=== PATIENT | female | born 2000 | race African-American/Black ===

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

== ENCOUNTER → 2019-08-04 | Outpatient (CLI) | payer OTHER ==
[~2019-08-04] MED LIST: TRAM50TA PO
[2019-08-04 17:42] LABS: BASO # 0.1 x10^3/uL (0.0-0.2); BASO % 1 % (0-3); EOS # 0.1 x10^3/uL (0.0-0.7); EOS % 1 % (0-3); HEMATOCRIT 37.9 % (36.0-47.0); HEMOGLOBIN 12.7 g/dL (12.0-15.5); LYMPH # 2.5 x10^3/uL (1.0-4.8); LYMPH % 24 % (24-48); MEAN CORPUSCULAR HEMOGLOBIN 27 pg (25-35); MEAN CORPUSCULAR HGB CONC 34 g/dL (31-37); MEAN CORPUSCULAR VOLUME 82 fL (79-100); MONO # 0.9 x10^3/uL (0.0-1.1); MONO % 9 % (0-9); NEUT % 67 % (31-73); PLATELET COUNT 344 x10^3/uL (140-400); RED BLOOD COUNT 4.64 x10^6/uL (3.50-5.40); RED CELL DISTRIBUTION WIDTH 15.4 % (11.5-14.5); WHITE BLOOD COUNT 10.5 x10^3/uL (4.0-11.0)
== END ==
LOC: LAB 17:22
PROVIDERS: ATTEND Obstetrics & Gynecology
DX: Z32.01 Encounter for pregnancy test, result positive (principal)
CPT/HCPCS: 36415; 84144; 84702; 85025; 85660; 86592; 86703; 86762; 86850; 86900; 86901; 87340

== ENCOUNTER → 2019-11-22 | Outpatient (CLI) | payer OTHER ==
--- NOTE | 2019-11-22 17:33 | RAD ---
EXAM: Obstetrics sonogram. HISTORY: Size and dates discrepancy. TECHNIQUE: Sonographic imaging of a gravid uterus was performed. COMPARISON: 07/30/2019. FINDINGS: There is a single intrauterine fetus in breech presentation with a normal heart rate of 137 bpm. There is a posterior grade 1 placenta without evidence of placenta previa. The cervix is closed and measures 4.2 cm in length. The amniotic fluid volume is normal. There is a three-vessel umbilical cord. The heart, brain, spine, kidneys, stomach, bladder, facial profile and extremities are unremarkable. The biparietal diameter is 5.12 cm, corresponding with 21 weeks and 4 days. The head circumference is 19.11 cm, corresponding with 21 weeks and 3 days. The abdominal circumference is 16.63 cm, corresponding with 21 weeks and 5 days. The femoral length is 3.62 cm, corresponding with 21 weeks and 3 days. The estimated gestational age based on combined ultrasound measurements is 21 weeks and 4 days and the estimated weight is 433 g. This corresponds with the 14th percentile for a gestational age of 23 weeks and 5 days based on LMP. IMPRESSION: 1. Single intrauterine fetus in breech presentation with normal heart rate and gestational age based on ultrasound measurements of 21 weeks and 4 days. The estimated weight is at the 40th percentile for a gestational age of 23 weeks and 5 days based on LMP. 2. Unremarkable anatomy survey. Electronically signed by: Umu Finnegan MD (11/22/2019 5:30 PM) [id number]
== END | disposition home or self-care (01) ==
LOC: US 14:42
PROVIDERS: ATTEND Obstetrics & Gynecology
DX: O26.842 Uterine size-date discrepancy, second trimester (principal); Z3A.23 23 weeks gestation of pregnancy
CPT/HCPCS: 76805

== ENCOUNTER 2020-04-03 19:49 | Inpatient (IN) | payer OTHER ==
[~2020-04-03] VITALS: Ht 172.7 cm; Wt 164.8 kg
[2020-04-03] MEDS: IV RINGERS,LACTATED 1000ML 1,000 ML IV SCH (21:26)
[2020-04-03 21:29] VITALS: BP 142/74
[2020-04-03] MEDS ORDERED: 0.9 % SODIUM CHLORIDE 10 ML DISP.SYRIN. IV PRN (21:30)
[2020-04-03] MEDS ORDERED: OXYTOCIN 30 UNIT/500 ML PREMIX 500 ML IV PRN ×2 (21:30)
[2020-04-03] MEDS ORDERED: ONDANSETRON PF 4 MG/2 ML VIAL. IVP PRN (21:30)
[2020-04-03] MEDS ORDERED: LIDOCAINE 1% PF 30 ML VIAL. INJ PRN (21:30)
[2020-04-03] MEDS ORDERED: fentaNYL PF VIAL 100 MCG/2 ML VIAL IVP PRN ×2 (21:30)
[2020-04-03] MEDS ORDERED: ACETAMINOPHEN 325 MG TABLET. PO PRN (21:30)
[2020-04-03] MEDS ORDERED: PENICILLIN G K 5,000,000 UNIT in IV DEXTROSE 5% 100ML 100 ML IV ONE (21:30)
[2020-04-03] MEDS ORDERED: MAG HYDROX/ALUMINUM HYD/SIMETH 30 ML ORAL.SUSP PO PRN (21:30)
[2020-04-03] MEDS ORDERED: DOCUSATE SODIUM 283 MG/5 ML ENEMA. PR PRN (21:30)
[2020-04-03] MEDS ORDERED: TERBUTALINE 1 MG/ML VIAL. SQ PRN (21:30)
[2020-04-03] MEDS ORDERED: DINOPROSTONE 10 MG SUPP.VAG VG ONE (21:30)
[2020-04-03 21:50] LABS: BASO # 0.1 x10^3/uL (0.0-0.2); BASO % 1 % (0-3); EOS % 1 % (0-3); HEMATOCRIT 35.5 % (36.0-47.0); HEMOGLOBIN 11.7 g/dL (12.0-15.5); LYMPH # 2.2 x10^3/uL (1.0-4.8); LYMPH % 24 % (24-48); MEAN CORPUSCULAR HEMOGLOBIN 27 pg (25-35); MEAN CORPUSCULAR HGB CONC 33 g/dL (31-37); MEAN CORPUSCULAR VOLUME 82 fL (79-100); MONO # 0.9 x10^3/uL (0.0-1.1); MONO % 10 % (0-9); NEUT # 5.9 x10^3/uL (1.8-7.7); NEUT % 64 % (31-73); PLATELET COUNT 330 x10^3/uL (140-400); RED BLOOD COUNT 4.31 x10^6/uL (3.50-5.40); RED CELL DISTRIBUTION WIDTH 15.4 % (11.5-14.5); WHITE BLOOD COUNT 9.2 x10^3/uL (4.0-11.0)
[2020-04-04] MEDS: IV RINGERS,LACTATED 1000ML 1,000 ML IV SCH ×2 (06:55→17:15)
[2020-04-04 07:17] LABS: BILIRUBIN,URINE NEGATIVE (NEG); CLARITY,URINE CLEAR; COLOR,URINE YELLOW; NITRITE,URINE NEGATIVE (NEG); PROTEIN,URINE NEGATIVE (NEG-TRACE); UROBILINOGEN,URINE 0.2 mg/dL (0.2 mg/dL)
[2020-04-04 07:39] LABS: BACTERIA,URINE FEW /HPF (0-FEW); RBC,URINE 0 /HPF (0-2)
--- NOTE | 2020-04-04 08:10 | PDOC1 ---
OB - History Hx of Present Care: Good Care Ultrasounds: Normal mid trimester US Obstetrical Complications: Other (Oligohydramnios) Medical Complications: None Past Family/Social History * Past Medical, Surgical, Family and Obstetric Histories reviewed from chart. Rubella: Immune RPR/VDRL: Negative GBS Status: Positive HBsAG: Negative OB - Chief Complaint & HPI Date of Admission: Date of Admission: Apr 03, 2020 at 19:49 Chief Complaint/History : 1 Para: 0 EGA: 40 Reason for admission: induction of labor (oligohydramnios) Admission Nurse Assessment Rev: Yes OB - Admission Exam Physical Exam Vitals: VS - Last 72 Hours, by Label Date Time Temp Pulse Resp B/P (MAP) Pulse Ox O2 Delivery O2 Flow Rate FiO2 04/03/20 21:29 98.2 103 18 142/74 (96) Room Air 98.2 HEENT: Normal Heart: Regular Rate Lungs: Clear Abdomen: Gravid, Non tender, Soft Extremities: Edema Reflexes: Normal Cervical Dilatation: Fingertip Effacement: 50% Station: -3 Membranes: Intact Accelerations: Accelerations Present Decelerations: No decelerations Contractions on Admission: None Text A: 40 wks IUP Oligohydramnios GBS positive P: Admit IOL cervidil, then pitocin in am with Pen G prophylaxis for GBS status. CHARISSA DEL TORO Jr, MD Apr 04, 2020 08:10
[2020-04-04] MEDS: PENICILLIN G K 2,500,000 UNIT in IV DEXTROSE 5% 50 ML IV SCH (11:37)
[2020-04-04] MEDS ORDERED: DINOPROSTONE 10 MG SUPP.VAG VG ONE ×2 (17:00→22:30)
[2020-04-05] MEDS ORDERED: diphenhydrAMINE HCL 25 MG CAPSULE PO PRN ×2 (01:15→14:00)
[2020-04-05] MEDS: PENICILLIN G K 2,500,000 UNIT in IV DEXTROSE 5% 50 ML IV SCH ×2 (05:52→10:46)
[2020-04-05] MEDS ORDERED: OXYTOCIN 30 UNIT/500 ML PREMIX 500 ML IV ONE (06:00)
[2020-04-05] MEDS ORDERED: ROPIVacaine 0.2% PF 10 ML VIAL. ONE ×2 (09:06→10:00)
[2020-04-05] MEDS ORDERED: L&D EPIDURAL SYRINGE 50 ML ONE ×2 (09:07→12:31)
[2020-04-05] MEDS ORDERED: L&D EPIDURAL 50 ML SYRINGE. ONE (10:00)
[2020-04-05] MEDS: IV RINGERS,LACTATED 1000ML 1,000 ML IV SCH (10:04)
--- NOTE | 2020-04-05 13:51 | PDOC ---
VAGINAL DELIVERY DATE DATE: 04/05/20 TIME: 13:50 : 1 Para: 1 EGA: 40 VAGINAL DELIVERY: VTX VACCUM ASSISTED: No PLACENTA: Spontaneous 8/9 SEX: Female WEIGHT Weight [ 6 lbs. 8 oz ] Nuchal Cord: No Amniotic Fluid: Clear PAIN: Epidural EPISIOTOMY: No EXTENSION: Yes (2nd degree midline laceration and periurethral laceration) REPAIRED WITH 2-0 vicryl and 3-0 chromic EBL 300 ml COMPLICATIONS none CONDITION pt. stable Signs of Intrauterine Infectio: None Shoulder Dystocia: No CHARISSA DEL TORO Jr, MD Apr 05, 2020 13:51
[2020-04-05] MEDS ORDERED: HYDROCORTISONE 1% TOPICAL OINTMENT 30GM TUBE. TP PRN (14:00)
[2020-04-05] MEDS ORDERED: ZOLPIDEM 5 MG TABLET. PO PRN (14:00)
[2020-04-05] MEDS ORDERED: SIMETHICONE 80 MG TAB.CHEW PO PRN (14:00)
[2020-04-05] MEDS ORDERED: ACETAMINOPHEN 325 MG TABLET. PO PRN (14:00)
[2020-04-05] MEDS ORDERED: MAGNESIUM HYDROXIDE 2,400 MG/30 ML ORAL.SUSP. PO PRN (14:00)
[2020-04-05] MEDS ORDERED: IBUPROFEN 400 MG TABLET. PO PRN (14:00)
[2020-04-05] MEDS ORDERED: PHENYLEPH/MINERAL OIL/PETROLAT RECTAL OINTMENT TUBE. RC PRN (14:00)
[2020-04-05] MEDS ORDERED: OXYTOCIN 30 UNIT/500 ML PREMIX 500 ML IV PRN (14:00)
[2020-04-05] MEDS ORDERED: BENZOCAINE 20% TOPICAL AEROSOL SPRAY 57GM CAN. TP PRN (14:00)
[2020-04-05] MEDS ORDERED: oxyCODONE/APAP 5/325 1 TAB TABLET PO PRN (14:00)
[2020-04-05] MEDS ORDERED: 0.9 % SODIUM CHLORIDE 10 ML DISP.SYRIN. IV PRN (14:00)
[2020-04-05] MEDS ORDERED: MMR per PROTOCOL. MC PRN (14:00)
[2020-04-05] MEDS ORDERED: MAG HYDROX/ALUMINUM HYD/SIMETH 30 ML ORAL.SUSP PO PRN (14:00)
[2020-04-05] MEDS ORDERED: TDaP (Adacel) per PROTOCOL. MC PRN (14:00)
[2020-04-05] MEDS: IBUPROFEN 400 MG TABLET. PO PRN ×2 (15:50→20:20)
[2020-04-05 17:00] VITALS: BP 123/75
[2020-04-05 17:45] VITALS: BP 104/55
[2020-04-05 20:20] VITALS: BP 111/49
[2020-04-06] VITALS (7 sets, daily range): BP systolic 105–115; BP diastolic 58–74
[2020-04-06 07:24] LABS: BASO # 0.1 x10^3/uL (0.0-0.2); BASO % 1 % (0-3); EOS % 0 % (0-3); HEMATOCRIT 29.9 % (36.0-47.0); HEMOGLOBIN 9.5 g/dL (12.0-15.5); LYMPH # 3.4 x10^3/uL (1.0-4.8); LYMPH % 27 % (24-48); MEAN CORPUSCULAR HEMOGLOBIN 26 pg (25-35); MEAN CORPUSCULAR HGB CONC 32 g/dL (31-37); MEAN CORPUSCULAR VOLUME 82 fL (79-100); MONO # 1.2 x10^3/uL (0.0-1.1); MONO % 10 % (0-9); NEUT # 8.1 x10^3/uL (1.8-7.7); NEUT % 63 % (31-73); PLATELET COUNT 252 x10^3/uL (140-400); RED BLOOD COUNT 3.63 x10^6/uL (3.50-5.40); RED CELL DISTRIBUTION WIDTH 15.3 % (11.5-14.5); WHITE BLOOD COUNT 12.9 x10^3/uL (4.0-11.0)
[2020-04-06] MEDS ORDERED: MULTIVITAMIN with MINERAL TABLET. PO SCH (09:00)
[2020-04-06] MEDS: DOCUSATE SODIUM 100 MG CAPSULE. PO PRN ×2 (09:14→17:46)
[2020-04-06] MEDS: FERROUS SULFATE 325 MG TABLET. PO SCH ×2 (09:14→17:48)
--- NOTE | 2020-04-06 10:57 | PDOC ---
OB Progress Note Date of Service 04/06/20 Time of Evaluation 1055 Notes Pt. feeling well. No complaints. Lab Laboratory Tests Test 04/06/20 07:13 White Blood Count 12.9 x10^3/uL (4.0-11.0) Red Blood Count 3.63 x10^6/uL (3.50-5.40) Hemoglobin 9.5 g/dL (12.0-15.5) Hematocrit 29.9 % (36.0-47.0) Mean Corpuscular Volume 82 fL (79-100) Mean Corpuscular Hemoglobin 26 pg (25-35) Mean Corpuscular Hemoglobin Concent 32 g/dL (31-37) Red Cell Distribution Width 15.3 % (11.5-14.5) Platelet Count 252 x10^3/uL (140-400) Neutrophils (%) (Auto) 63 % (31-73) Lymphocytes (%) (Auto) 27 % (24-48) Monocytes (%) (Auto) 10 % (0-9) Eosinophils (%) (Auto) 0 % (0-3) Basophils (%) (Auto) 1 % (0-3) Neutrophils # (Auto) 8.1 x10^3/uL (1.8-7.7) Lymphocytes # (Auto) 3.4 x10^3/uL (1.0-4.8) Monocytes # (Auto) 1.2 x10^3/uL (0.0-1.1) Eosinophils # (Auto) 0.0 x10^3/uL (0.0-0.7) Basophils # (Auto) 0.1 x10^3/uL (0.0-0.2) Laboratory Tests Test 04/06/20 07:13 White Blood Count 12.9 x10^3/uL (4.0-11.0) Red Blood Count 3.63 x10^6/uL (3.50-5.40) Hemoglobin 9.5 g/dL (12.0-15.5) Hematocrit 29.9 % (36.0-47.0) Mean Corpuscular Volume 82 fL (79-100) Mean Corpuscular Hemoglobin 26 pg (25-35) Mean Corpuscular Hemoglobin Concent 32 g/dL (31-37) Red Cell Distribution Width 15.3 % (11.5-14.5) Platelet Count 252 x10^3/uL (140-400) Neutrophils (%) (Auto) 63 % (31-73) Lymphocytes (%) (Auto) 27 % (24-48) Monocytes (%) (Auto) 10 % (0-9) Eosinophils (%) (Auto) 0 % (0-3) Basophils (%) (Auto) 1 % (0-3) Neutrophils # (Auto) 8.1 x10^3/uL (1.8-7.7) Lymphocytes # (Auto) 3.4 x10^3/uL (1.0-4.8) Monocytes # (Auto) 1.2 x10^3/uL (0.0-1.1) Eosinophils # (Auto) 0.0 x10^3/uL (0.0-0.7) Basophils # (Auto) 0.1 x10^3/uL (0.0-0.2) Medications Current Medications Sodium Chloride (Normal Saline Flush) 3 ml QSHIFT PRN IV AFTER MEDS AND BLOOD DRAWS; Start 04/03/20 at 21:30 Ringer's Solution 1,000 ml @ 125 mls/hr Q8H IV Last administered on 04/05/20at 10:04; Start 04/03/20 at 21:30; Stop 04/05/20 at 23:00; Status DC Fentanyl Citrate (Fentanyl 2ml Vial) 50 mcg PRN Q30MIN PRN IVP Mild to moderate pain Last administered on 04/05/20at 07:26; Start 04/03/20 at 21:30 Fentanyl Citrate (Fentanyl 2ml Vial) 100 mcg PRN Q30MIN PRN IVP Severe pain; Start 04/03/20 at 21:30 Acetaminophen (Tylenol) 650 mg PRN Q6HRS PRN PO MILD PAIN / TEMP > 100.3'F Last administered on 04/04/20at 03:36; Start 04/03/20 at 21:30 Ondansetron HCl (Zofran) 4 mg PRN Q4HRS PRN IVP NAUSEA/VOMITING; Start 04/03/20 at 21:30 Al Hydroxide/Mg Hydroxide (Mylanta Plus Xs) 30 ml PRN Q4HRS PRN PO HEARTBURN / GAS; Start 04/03/20 at 21:30 Terbutaline Sulfate (Brethine) 0.25 mg 1X PRN PRN SQ SEE COMMENTS; Start 04/03/20 at 21:30; Stop 04/04/20 at 21:29; Status DC Lidocaine HCl (Xylocaine 1% Pf 30ml Vial) 30 ml 1X PRN PRN INJ SEE COMMENTS Last administered on 04/05/20at 15:51; Start 04/03/20 at 21:30; Stop 04/05/20 at 21:29; Status DC Oxytocin 500 ml @ 0 mls/hr CONT PRN IV SEE I/O RECORD Last administered on 04/04/20at 07:27; Start 04/03/20 at 21:30 Oxytocin 500 ml @ 0 mls/hr CONT PRN PRN IV Post delivery bleeding; Start 04/03/20 at 21:30 Ibuprofen (Motrin) 800 mg PRN Q6HRS PRN PO PAIN Last administered on 04/05/20at 20:20; Start 04/03/20 at 21:30 Penicillin G Potassium [id number] unit/Dextrose 100 ml @ 100 mls/hr 1X ONCE IV Last administered on 04/04/20at 07:25; Start 04/03/20 at 21:30; Stop 04/03/20 at 22: 29; Status DC Penicillin G Potassium [id number] unit/Dextrose 50 ml @ 100 mls/hr Q4H IV Last administered on 04/05/20at 10:46; Start 04/04/20 at 01:30; Stop 04/05/20 at 23:00; Status DC Docusate Sodium (Enemeez) 283 mg PRN DAILY PRN DC CONSTIPATION; Start 04/03/20 at 21:30 Dinoprostone (Cervidil) 10 mg 1X ONCE VG Last administered on 04/03/20at 21:38; Start 04/03/20 at 21:30; Stop 04/03/20 at 21:31; Status DC Dinoprostone (Cervidil) 10 mg 1X ONCE VG Last administered on 04/04/20at 17:15; Start 04/04/20 at 17:00; Stop 04/04/20 at 17:01; Status DC Oxytocin 500 ml @ 0 mls/hr 1X ONCE IV Last administered on 04/05/20at 06:13; Start 04/05/20 at 06:00; Stop 04/05/20 at 06:01; Status DC Dinoprostone (Cervidil) 10 mg 1X ONCE VG Last administered on 04/04/20at 22:31; Start 04/04/20 at 22:30; Stop 04/04/20 at 22:31; Status DC Diphenhydramine HCl (Benadryl) 50 mg PRN QHS PRN PO INSOMNIA Last administered on 04/05/20at 01:19; Start 04/05/20 at 01:15 Ropivacaine (Naropin 0.2%) 10 ml STK-MED ONCE .ROUTE ; Start 04/05/20 at 09:06; Stop 04/05/20 at 09:07; Status DC Fentanyl Citrate 50 ml @ As Directed STK-MED ONCE .ROUTE ; Start 04/05/20 at 09:07; Stop 04/05/20 at 09:07; Status DC Fentanyl Citrate 50 ml @ As Directed STK-MED ONCE .ROUTE ; Start 04/05/20 at 12:31; Stop 04/05/20 at 12:32; Status DC Sodium Chloride (Normal Saline Flush) 10 ml QSHIFT PRN IV AFTER MEDS AND BLOOD DRAWS; Start 04/05/20 at 14:00 Oxytocin 500 ml @ 62.5 mls/hr CONT PRN IV SEE I/O RECORD; Start 04/05/20 at 14:00; Stop 04/05/20 at 21:59; Status DC Acetaminophen (Tylenol) 650 mg PRN Q6HRS PRN PO MILD PAIN / TEMP > 100.3'F; Start 04/05/20 at 14:00 Ibuprofen (Motrin) 800 mg PRN Q8HRS PRN PO INFLAMMATION/PAIN PREVENTION; Start 04/05/20 at 14:00 Docusate Sodium (Colace) 100 mg PRN BID PRN PO CONSTIPATION; Start 04/05/20 at 14:00 Magnesium Hydroxide (Milk Of Magnesia) 2,400 mg PRN DAILY PRN PO CONSTIPATION; Start 04/05/20 at 14:00 Al Hydroxide/Mg Hydroxide (Mylanta Plus Xs) 30 ml PRN Q4HRS PRN PO HEARTBURN / GAS; Start 04/05/20 at 14:00 Simethicone (Gas-X) 80 mg PRN AFTMEALHC PRN PO GAS / BLOATING; Start 04/05/20 at 14:00 Diphenhydramine HCl (Benadryl) 25 mg PRN Q6HRS PRN PO ITCHING; Start 04/05/20 at 14:00 Benzocaine (Americaine) 1 spray PRN QID PRN TP TOPICAL PAIN; Start 04/05/20 at 14:00 Phenyleph/Shark Oil/Min Oil/Petrol (Preparation H) 1 joslyn PRN QID PRN RC RECTAL PAIN; Start 04/05/20 at 14:00 Hydrocortisone (Cortaid) 1 joslyn PRN QID PRN TP PERINEAL PAIN; Start 04/05/20 at 14:00 Ferrous Sulfate (Feosol) 325 mg BIDWMEALS PO Last administered on 04/06/20at 09:14; Start 04/06/20 at 08:00 Zolpidem Tartrate (Ambien) 5 mg PRN QHS PRN PO INSOMNIA, MAY REPEAT X1; Start 04/05/20 at 14:00 Info (Do NOT chart on this placeholder) 1 ea 1X PRN PRN MC SEE COMMENTS; Start 04/05/20 at 14:00 Info (Do NOT chart on this placeholder) 1 ea 1X PRN PRN MC SEE COMMENTS; Start 04/05/20 at 14:00 Oxycodone/ Acetaminophen (Percocet 5/325) 2 tab PRN Q4HRS PRN PO MODERATE PAIN, SEVERE PAIN; Start 04/05/20 at 14:00 Multivitamins (Thera M Plus) 1 tab DAILY PO ; Start 04/06/20 at 09:00 Active Scripts Active Tramadol Hcl 50 Mg Tablet 50 Mg PO Q6HRS PRN Exam Abd: soft, non tender, fundus firm Assessment PPD#1 s/p Plan of Care: Continue current Tx, Mgmt CHARISSA DEL TORO Jr, MD Apr 06, 2020 10:57
[2020-04-06] MEDS: IBUPROFEN 400 MG TABLET. PO PRN ×2 (12:05→17:46)
[2020-04-07 05:00] VITALS: BP 107/65
[2020-04-07] MEDS: DOCUSATE SODIUM 100 MG CAPSULE. PO PRN (07:57)
--- NOTE | 2020-04-07 07:57 | PDOC3 ---
OB DISCHARGE SUMMARY DATE OF ADMISSION: 04/04/20 DATE OF DISCHARGE: 04/07/20 REASON FOR ADMISSION: Induction of labor (oligohydramnios) INTRAPARTUM PROCEDURES: Spontanous Vag Deliv DISCHARGE DIAGNOSIS: Term Delivered DISCHARGE INFORMATION: Activity (ad kassi), Diet (regular), Instructions (pelvic rest x 6 wks) HOSPITAL COURSE Term gestation delivered vaginally without complications. CHARISSA DEL TORO Jr, MD Apr 07, 2020 07:57
[2020-04-07] MEDS: FERROUS SULFATE 325 MG TABLET. PO SCH (07:58)
[2020-04-07] MEDS: IBUPROFEN 400 MG TABLET. PO PRN (07:58)
[2020-04-07] MEDS ORDERED: IBUP-1027 PO (08:00)
[2020-04-07] MEDS ORDERED: DOCU-153 PO (08:00)
[2020-04-07] MEDS ORDERED: OXYC1TAB15 PO (08:00)
--- NOTE | 2020-04-07 08:00 | DISCH ---
DISCHARGE INSTRUCTIONS Condition on Discharge Condition on Discharge: Stable Activity After Discharge Activity Instructions for Disc: Activity as tolerated Lifting Instructions after Dis: No heavy lifting Driving Instructions after Dis: Do not drive today Diet after Discharge Diet after Discharge: Regular Contacting the DRAnanth after DC Call your doctor for: Concerns you may have Follow-Up Follow up with: Dr. Chairez in 6 wks CHARISSA CHAIREZ Jr, MD Apr 07, 2020 08:00
[2020-04-07 08:45] VITALS: BP 106/73
[2020-04-07 10:45] VITALS: BP 119/76
== END 2020-04-07 11:00 | disposition home or self-care (01) | DRG 806 ==
LOC: 3 SO LND 19:49 → OBSVTOIN 19:49 → 3 NORTH 04-05 16:45
PROVIDERS: ADMIT Obstetrics & Gynecology; ATTEND Obstetrics & Gynecology
PROC: 3E033VJ Introduction of Other Hormone into Peripheral Vein, Percutaneous Approach (ICD-10-PCS; 2020-04-04)
PROC: 3E0P7VZ Introduction of Hormone into Female Reproductive, Via Natural or Artificial Opening (ICD-10-PCS; 2020-04-04)
PROC: 10E0XZZ Delivery of Products of Conception, External Approach (ICD-10-PCS; principal; 2020-04-05)
PROC: 0KQM0ZZ Repair Perineum Muscle, Open Approach (ICD-10-PCS; 2020-04-05)
PROC: 3E0R3BZ Introduction of Anesthetic Agent into Spinal Canal, Percutaneous Approach (ICD-10-PCS; 2020-04-05)
PROC: 00HU33Z Insertion of Infusion Device into Spinal Canal, Percutaneous Approach (ICD-10-PCS; 2020-04-05)
PROC: 0UQMXZZ Repair Vulva, External Approach (ICD-10-PCS; 2020-04-05)
DX: O99.824 Streptococcus B carrier state complicating childbirth (principal); O41.03X0 Oligohydramnios, third trimester, not applicable or unspecified; Z37.0 Single live birth; Z20.822 Contact with and (suspected) exposure to COVID-19; O70.1 Second degree perineal laceration during delivery; O71.82 Other specified trauma to perineum and vulva; Z3A.40 40 weeks gestation of pregnancy
CPT/HCPCS: 36415; 81001; 85025; 86592; 86850; 86900; 86901; 87086; 87426; J2540; J2590; J2795; J3010; J3490; J7060; J7120; U0003; G0378; Q0163

== ENCOUNTER → 2021-02-20 | Outpatient (CLI) | payer OTHER ==
[~2021-02-20] MED LIST changes: +DOCU-148 PO; +IBUP-1027 PO; +OXYC1TAB15 PO
== END ==
LOC: LAB 20:01
PROVIDERS: ATTEND Obstetrics & Gynecology
DX: O09.71 Supervision of high risk pregnancy due to social problems, first trimester (principal)
CPT/HCPCS: 87086; 87491; 87591

== ENCOUNTER → 2021-03-05 | Outpatient (CLI) | payer OTHER ==
[2021-03-05 16:14] LABS: HEMATOCRIT 38.4 % (36.0-47.0); HEMOGLOBIN 12.5 g/dL (12.0-15.5); RED BLOOD COUNT 4.65 x10^6/uL (3.50-5.40); RED CELL DISTRIBUTION WIDTH 15.3 % (11.5-14.5)
[2021-03-05 16:50] LABS: CREATININE,RANDOM URINE 505.4 mg/dL (Not Establ.)
[2021-03-05 17:02] LABS: ALBUMIN 3.2 g/dL (3.4-5.0); ALBUMIN/GLOBULIN RATIO 0.8 (1.0-1.7); CALCIUM 8.7 mg/dL (8.5-10.1); CREATININE 0.7 mg/dL (0.6-1.0); GFR 127.8; TOTAL BILIRUBIN 0.1 mg/dL (0.2-1.0); TOTAL PROTEIN 7.4 g/dL (6.4-8.2); URIC ACID 3.3 mg/dL (2.6-6.0)
[2021-03-06 21:07] LABS: RUBELLA IGG ANTIBODY 1.06 index (Immune >0.99)
== END ==
LOC: LAB 15:04
PROVIDERS: ATTEND Obstetrics & Gynecology
DX: O09.71 Supervision of high risk pregnancy due to social problems, first trimester (principal)
CPT/HCPCS: 36415; 80053; 82570; 83615; 84156; 84550; 85027; 85660; 86592; 86703; 86762; 86787; 86803; 86850; 86900; 86901; 87340